=== PATIENT | male | born 1990 | race Caucasian/White ===

== ENCOUNTER 2021-11-23 12:38 | Emergency (ER) | payer OTHER ==
[~2021-11-23] VITALS: Ht 195.6 cm; Wt 102.5 kg
== END 2021-11-23 13:16 | disposition home or self-care (01) ==
LOC: ER 12:38
DX: S60.021A Contusion of right index finger without damage to nail, initial encounter (principal); E10.9 Type 1 diabetes mellitus without complications; Z88.0 Allergy status to penicillin; F17.220 Nicotine dependence, chewing tobacco, uncomplicated; W00.0XXA Fall on same level due to ice and snow, initial encounter
CPT/HCPCS: 73140; 99283-25

== ENCOUNTER 2022-05-24 18:14 | Emergency (ER) | payer OTHER ==
[~2022-05-24] VITALS: Ht 190.5 cm; Wt 99.8 kg
== END 2022-05-24 19:00 | disposition home or self-care (01) ==
LOC: ER 18:14
DX: Z76.0 Encounter for issue of repeat prescription (principal); E11.9 Type 2 diabetes mellitus without complications; Z88.0 Allergy status to penicillin
CPT/HCPCS: J1815